=== PATIENT | male | born 1950 | race African-American/Black ===

== ENCOUNTER 2017-03-17 02:46 | Emergency (ER) | payer MEDICARE, OTHER ==
[~2017-03-17 02:46] MED LIST: AMLO10 PO; ATOR20TA42 PO; ECASA PO; METF-324 PO; METO25 PO; NOVONP2 SQ
[2017-03-17 02:51] VITALS: BP 199/94; PULSE 96; RESP 16; TEMP 99.8; O2SAT 100
[2017-03-17 04:30] VITALS: BP 186/89; PULSE 78; RESP 16; O2SAT 98
--- NOTE | 2017-03-17 04:58 | PD ---
HPI Chief Complaint: ENT Complaint Time Seen by Provider: 04:54 Travel History International Travel<30 days: No Contact w/Intl Traveler<30days: No Traveled to known affect area: No History of Present Illness HPI 66-year-old male presents to the emergency department by private transportation for complaint of right facial swelling. Patient is noted swelling 2 weeks. Patient has been on a course of oral antibiotic without symptomatic relief. Patient went [facility] primary care provider who prescribed his oral antibiotic and received an injection of antibiotic and pain medication due to persistent symptoms presents now. Patient has been referred to an clearance representative next Tuesday but feels like he should be seen and evaluated before this because he is diabetic. Patient denies fever chills. Patient had no sinus drainage and no epistaxis. Patient denies any dental pain. Patient states pain is referred to his right ear. PFSH Past Medical History Narrative Medical Diabetes CVA hypertension colon cancer partial colectomy no tobacco use nursing notes reviewed Hx Anticoagulant Therapy: Yes Arthritis: Yes Blood Disorders: No Cancer: Yes (hx of colon cancer) Cardiovascular Problems: Yes Chemotherapy: No Cerebrovascular Accident: Yes Diabetes: Yes Patient Takes Glucophage: Yes Endocrine: Yes Gastrointestinal Disorders: Yes (COLON CANCER) Glaucoma: No Genitourinary: No Hepatitis: No Hiatal Hernia: No Hypertension: Yes Immune Disorder: No Musculoskeletal: Yes Neurologic: Yes Psychiatric: No Reproductive: No Respiratory: No Radiation Therapy: No Thyroid Disease: No Tetanus Vaccination: Unknown Influenza Vaccination: No Past Surgical History Abdominal Surgery: Yes (colon resection ) Cholecystectomy: Yes Other Surgery: Yes (HERNIA OP 2010) Social History Alcohol Use: No Tobacco Use: No Substance Use: No Allergies-Medications (Allergen,Severity, Reaction): Coded Allergies: No Known Allergies (Verified Adverse Reaction, Unknown, 03/17/17) Uncoded Allergies: [facility] (Allergy, Unknown, 12/18/08) Reported Meds & Prescriptions Reported Meds & Active Scripts Active Lipitor (Atorvastatin) 20 Mg Tab 20 Mg PO HS 30 Days Ecotrin Regular Strength (Aspirin) 325 Mg Tabec 325 Mg PO DAILY Norvasc (Amlodipine Besylate) 10 Mg Tab 10 Mg PO DAILY Glucophage (Metformin HCl) 1,000 Mg Tab 1,000 Mg PO BID Metoprolol Tartrate 25 Mg Tab 12.5 Mg PO BID Reported Novolin N (Insulin Human NPH) 100 Units/Ml Inj 18 Units SQ BID Review of Systems Except as stated in HPI: all other systems reviewed are Neg Physical Exam Narrative GENERAL: Well-developed well-nourished male in no acute distress no respiratory distress SKIN: Warm and dry. HEAD: Normocephalic. EYES: No scleral icterus. No injection or drainage. ENT bilateral anterior nares clear mild tenderness to percussion over the right maxillary sinus bilateral tympanic membranes no redness dullness or loss of landmarks; airway is patent poor dentition with erosion and decay of the # 6 dentition with several missing teeth marked gingival edema with fluctuance. NECK: Supple, trachea midline. No JVD or lymphadenopathy. CARDIOVASCULAR: Regular rate and rhythm without murmurs, gallops, or rubs. RESPIRATORY: Breath sounds equal bilaterally. No accessory muscle use. GASTROINTESTINAL: Abdomen soft, non-tender, nondistended. MUSCULOSKELETAL: No cyanosis, or edema. BACK: Nontender without obvious deformity. No CVA tenderness. Data Data Last Documented VS Vital Signs Date Time Temp Pulse Resp B/P (MAP) Pulse Ox O2 Delivery O2 Flow Rate FiO2 03/17/17 04:30 78 16 186/89 (121) 98 Room Air 03/17/17 02:51 99.8 Orders Orders Complete Blood Count With Diff (03/17/17 04:22) Basic Metabolic Panel (Bmp) (03/17/17 04:22) C-Reactive Protein (Crp) (03/17/17 04:22) Westergren Sedimentation Rate (03/17/17 04:22) Iv Access Insert/Monitor (03/17/17 04:22) Clindamycin 900 Mg/Ns Premix (Cleocin 90 (03/17/17 06:00) Sodium Chlorid 0.9% 500 Ml Inj (Ns 500 M (03/17/17 06:00) Insulin Human Regular Inj (Novolin R Inj (03/17/17 06:00) Lidocaine 1% Inj (50 Ml) (Xylocaine 1% I (03/17/17 06:15) Lidocai-Epi 1%-1:100,000 Inj (Xylocaine- (03/17/17 06:11) Lidocaine Pf 1% Inj (Xylocaine-Mpf 1% In (03/17/17 06:13) Wound Culture And Gram Stain (03/17/17 06:18) Labs Laboratory Tests Test 03/17/17 04:25 03/17/17 04:30 Erythrocyte Sedimentation Rate 44 mm/hr White Blood Count 9.5 TH/MM3 Red Blood Count 4.30 MIL/MM3 Hemoglobin 13.4 GM/DL Hematocrit 38.2 % Mean Corpuscular Volume 89.0 FL Mean Corpuscular Hemoglobin 31.1 PG Mean Corpuscular Hemoglobin Concent 34.9 % Red Cell Distribution Width 13.4 % Platelet Count 385 TH/MM3 Mean Platelet Volume 8.3 FL Neutrophils (%) (Auto) 68.1 % Lymphocytes (%) (Auto) 19.5 % Monocytes (%) (Auto) 8.1 % Eosinophils (%) (Auto) 3.0 % Basophils (%) (Auto) 1.3 % Neutrophils # (Auto) 6.5 TH/MM3 Lymphocytes # (Auto) 1.9 TH/MM3 Monocytes # (Auto) 0.8 TH/MM3 Eosinophils # (Auto) 0.3 TH/MM3 Basophils # (Auto) 0.1 TH/MM3 CBC Comment DIFF FINAL Differential Comment Blood Urea Nitrogen 27 MG/DL Creatinine 1.76 MG/DL Random Glucose 344 MG/DL Calcium Level 9.0 MG/DL Sodium Level 132 MEQ/L Potassium Level 4.3 MEQ/L Chloride Level 97 MEQ/L Carbon Dioxide Level 29.3 MEQ/L Anion Gap 6 MEQ/L Estimat Glomerular Filtration Rate 47 ML/MIN C-Reactive Protein 1.40 MG/DL MDM Medical Decision Making Medical Screen Exam Complete: Yes Emergency Medical Condition: Yes Medical Record Reviewed: Yes Differential Diagnosis Dental abscess apical abscess gingivitis sinusitis Narrative Course Specimens collected and sent for resulting Gingival abscess lanced and patient clinically markedly improved specimen collected and sent resulting patient given one-time dose of IV antibiotic and will be discharged with prescription for clindamycin with recommendation to follow-up with his dentist. Patient is stable for outpatient management. Patient is encouraged to monitor blood sugars closely did receive a one-time dose of subcutaneous of insulin in the emergency department Diagnosis Primary Impression: Dental abscess Additional Impressions: Gingival abscess Diabetes mellitus Referrals: Dentist call for appointment Patient Instructions: General Instructions Additional Instructions: Complete course of antibiotic as prescribed Follow-up with dentist Return to the emergency department for any concerns or change in condition Monitor blood sugars closely and follow [employer] diet as well as take your medications as prescribed for diabetic management Med/Other Pt SpecificInfo: Prescription(s) given Scripts Clindamycin (Clindamycin) 150 Mg Cap 300 MG PO Q6H for Infection for 7 Days, #56 CAP 0 Refills Prov: Yumiko Jeff MD 03/17/17 Disposition: 01 DISCHARGE HOME Condition: Stable Yumiok Jeff MD Mar 17, 2017 04:58
[2017-03-17 05:08] LABS: AUTOMATED NEUTROPHIL # 6.5 TH/MM3 (1.8-7.7); BASOPHIL # 0.1 TH/MM3 (0-0.2); BASOPHIL % 1.3 % (0.0-2.0); EOSINOPHIL # 0.3 TH/MM3 (0-0.4); HEMATOCRIT 38.2 % (39.0-51.0); HEMOGLOBIN 13.4 GM/DL (13.0-17.0); LYMPH % 19.5 % (9.0-44.0); LYMPHOCYTE # 1.9 TH/MM3 (1.0-4.8); MEAN CORPUSCULAR HEMOGLOBIN 31.1 PG (27.0-34.0); MEAN CORPUSCULAR HGB CONC 34.9 % (32.0-36.0); MEAN PLATELET VOLUME 8.3 FL (7.0-11.0); MONO % 8.1 % (0.0-8.0); MONOCYTE # 0.8 TH/MM3 (0-0.9); NEUT % 68.1 % (16.0-70.0); PLATELET COUNT 385 TH/MM3 (150-450); RED CELL DISTRIBUTION WIDTH 13.4 % (11.6-17.2); WHITE BLOOD COUNT 9.5 TH/MM3 (4.0-11.0)
[2017-03-17 05:29] LABS: BICARBONATE 29.3 MEQ/L (21.0-32.0); C-REACTIVE PROTEIN 1.4 MG/DL (0.00-0.30); CREATININE 1.76 MG/DL (0.60-1.30)
[2017-03-17] MEDS ORDERED: INSULIN HUMAN REGULAR 1,000 UNITS/10 ML VIAL SQ ONE (06:00)
[2017-03-17] MEDS ORDERED: CLINDAMYCIN 900 MG/NS PREMIX 50 ML IV ONE (06:00)
[2017-03-17] MEDS ORDERED: SODIUM CHLORID 0.9% 500 ML INJ 500 ML IV ONE (06:00)
[2017-03-17] MEDS ORDERED: LIDOCAINE 1%/EPINEPHrine 1:100,000 SOLN 50 ML VIAL ONE (06:11)
[2017-03-17] MEDS ORDERED: LIDOCAINE HCL 1% PF 30 ML VIAL ONE (06:13)
[2017-03-17] MEDS ORDERED: LIDOCAINE HCL 1% 50 ML VIAL INFIL ONE (06:15)
[2017-03-17] MEDS ORDERED: CLIN150C14 PO (07:01)
--- NOTE | 2017-03-20 05:19 | PD ---
Physical Exam Date Seen by Provider: Mar 17, 2017 Narrative For full history and physical examination please see previous providers note. I was asked to drain gingival abscess. Data Data Last Documented VS Vital Signs Date Time Temp Pulse Resp B/P (MAP) Pulse Ox O2 Delivery O2 Flow Rate FiO2 03/17/17 07:22 03/17/17 04:30 78 16 98 Room Air 03/17/17 02:51 99.8 Orders Orders Complete Blood Count With Diff (03/17/17 04:22) Basic Metabolic Panel (Bmp) (03/17/17 04:22) C-Reactive Protein (Crp) (03/17/17 04:22) Westergren Sedimentation Rate (03/17/17 04:22) Iv Access Insert/Monitor (03/17/17 04:22) Clindamycin 900 Mg/Ns Premix (Cleocin 90 (03/17/17 06:00) Sodium Chlorid 0.9% 500 Ml Inj (Ns 500 M (03/17/17 06:00) Insulin Human Regular Inj (Novolin R Inj (03/17/17 06:00) Lidocaine 1% Inj (50 Ml) (Xylocaine 1% I (03/17/17 06:15) Lidocai-Epi 1%-1:100,000 Inj (Xylocaine- (03/17/17 06:11) Lidocaine Pf 1% Inj (Xylocaine-Mpf 1% In (03/17/17 06:13) Wound Culture And Gram Stain (03/17/17 06:18) Ed Discharge Order (03/17/17 06:59) Labs Laboratory Tests Test 03/17/17 04:25 03/17/17 04:30 Erythrocyte Sedimentation Rate 44 mm/hr White Blood Count 9.5 TH/MM3 Red Blood Count 4.30 MIL/MM3 Hemoglobin 13.4 GM/DL Hematocrit 38.2 % Mean Corpuscular Volume 89.0 FL Mean Corpuscular Hemoglobin 31.1 PG Mean Corpuscular Hemoglobin Concent 34.9 % Red Cell Distribution Width 13.4 % Platelet Count 385 TH/MM3 Mean Platelet Volume 8.3 FL Neutrophils (%) (Auto) 68.1 % Lymphocytes (%) (Auto) 19.5 % Monocytes (%) (Auto) 8.1 % Eosinophils (%) (Auto) 3.0 % Basophils (%) (Auto) 1.3 % Neutrophils # (Auto) 6.5 TH/MM3 Lymphocytes # (Auto) 1.9 TH/MM3 Monocytes # (Auto) 0.8 TH/MM3 Eosinophils # (Auto) 0.3 TH/MM3 Basophils # (Auto) 0.1 TH/MM3 CBC Comment DIFF FINAL Differential Comment Blood Urea Nitrogen 27 MG/DL Creatinine 1.76 MG/DL Random Glucose 344 MG/DL Calcium Level 9.0 MG/DL Sodium Level 132 MEQ/L Potassium Level 4.3 MEQ/L Chloride Level 97 MEQ/L Carbon Dioxide Level 29.3 MEQ/L Anion Gap 6 MEQ/L Estimat Glomerular Filtration Rate 47 ML/MIN C-Reactive Protein 1.40 MG/DL MDM Medical Record Reviewed: Yes Supervised Visit with DORIS: Yes Procedures Procedure Narrative After the risks and benefits were discussed the following procedure was performed: INCISION AND DRAINAGE OF ABSCESS: The area was prepped and was sterilely draped. A subcutaneous wheal of 1% Xylocaine with a total number 1 mL was used to anesthetize the area. The area was properly anesthetized. A number 11 scalpel was used to make a 0.5 -cm incision across the area of the abscess. A Yankauer suction was utilized to avoid swallowing infected material. Cultures were obtained. The abscess was drained an irrigated with normal saline. Diagnosis Primary Impression: Dental abscess Additional Impressions: Gingival abscess Diabetes mellitus Referrals: Dentist call for appointment Patient Instructions: General Instructions, Dental Abscess (ED) Departure Forms: Tests/Procedures Additional Instruction: Complete course of antibiotic as prescribed Follow-up with dentist Return to the emergency department for any concerns or change in condition Monitor blood sugars closely and follow [employer] diet as well as take your medications as prescribed for diabetic management Scripts Clindamycin (Clindamycin) 150 Mg Cap 300 MG PO Q6H for Infection for 7 Days, #56 CAP 0 Refills Prov: Yumiko Jeff MD 03/17/17 Disposition: 01 DISCHARGE HOME Condition: Stable Afia Mohr Mar 20, 2017 05:19
== END 2017-03-17 07:19 | disposition home or self-care (01) ==
LOC: NEPC 02:46
DX: K05.219 Aggressive periodontitis, localized, unspecified severity (principal); E11.9 Type 2 diabetes mellitus without complications; I10 Essential (primary) hypertension; Z79.4 Long term (current) use of insulin; Z85.038 Personal history of other malignant neoplasm of large intestine
CPT/HCPCS: 41800; 80048; 85025; 85652; 86140; 87070; 96372; 96374; 99284; J1815; J7040